=== PATIENT | female | born 1995 | race African-American/Black ===

== ENCOUNTER 2017-01-13 15:48 | Emergency (ER) | payer OTHER ==
[~2017-01-13] VITALS: Ht 170.2 cm; Wt 81.8 kg
[2017-01-13] MEDS ORDERED: KETOROLAC TROMETHAMINE 60 MG/2 ML VIAL IM ONE (18:45)
[2017-01-13 20:06] VITALS: BP 129/66
== END 2017-01-13 20:07 | disposition home or self-care (01) ==
LOC: EMS 15:51
DX: S30.0XXA Contusion of lower back and pelvis, initial encounter (principal); J45.909 Unspecified asthma, uncomplicated; V49.69XA Unspecified car occupant injured in collision with other motor vehicles in traffic accident, initial encounter; Y93.89 Activity, other specified; Y92.89 Other specified places as the place of occurrence of the external cause; Y99.8 Other external cause status
CPT/HCPCS: 81002; 81025; 96372; 99283; J1885